=== PATIENT | male | born 1950 | race African-American/Black ===

== ENCOUNTER 2019-01-07 14:31 | Outpatient (CLI) | payer MEDICARE, OTHER ==
--- NOTE | 2019-01-07 20:18 | RAD ---
CHEST TWO VIEWS: 01/07/19 Comparison is made with the 09/06/13 study. The heart size is unchanged as well as the heart configuration. There is no vascular congestion or ed heike. There is a little linear streaking near the cardiac apex that seems similar to the prior study. I suspect it is lingular scarring. No effusions are seen. No lobar consolidations were appreciated. IMPRESSION: Chronic changes but no definite acute finding. POS: HOME
== END 2019-01-07 14:32 | disposition home or self-care (01) ==
LOC: BURRAD 14:31
PROVIDERS: ATTEND Family Medicine
DX: R05 Cough (principal)
CPT/HCPCS: 71046

== ENCOUNTER 2022-07-22 18:58 | Emergency (ER) | payer MEDICARE ==
[2022-07-22] MEDS ORDERED: Ketorolac Tromethamine 30 MG/ML VIAL ONE (19:56)
[2022-07-22] MEDS ORDERED: Diazepam 10 MG/2 ML SYRINGE ONE (19:56)
[2022-07-22] MEDS ORDERED: methylPREDNISolone Sod Succ/PF 125 MG/2 ML VIAL ONE (19:56)
[2022-07-22 20:38] LABS: #Basophils 0.1 thou/uL (0.0-0.2); #Eosinphils 0.1 thou/uL (0.0-0.7); #Lymphocytes 1.9 thou/uL (1.20-3.40); #Monocytes 0.8 thou/uL (0.11-0.59); #Neutrophils 4.9 thou/uL (1.40-6.50); %Basophils 0.7 % (0.0-1.0); %Eosinophils 1.9 % (0.0-10.0); %Lymphocytes 24.4 % (21.0-51.0); %Monocytes 10.4 % (0.0-10.0); %Neutrophils 62.7 % (42.0-75.0); Hemoglobin 14.9 g/dL (14.0-18.0); Mean Corpuscular HGB CONC 33.6 g/dL (32.0-36.0); Mean Corpuscular Hemoglobin 30.4 pg (27.0-31.0); Mean Corpuscular Volume 90.5 fL (78.0-98.0); Mean Platelet Volume 7.5 fL (7.4-10.4); Platelet Count 193 thou/uL (130-400); RBC Distribution Width 14.4 % (11.5-14.5); White Blood Cell (WBC) Count 7.9 thou/uL (4.8-10.8)
[2022-07-22 20:41] LABS: Bilirubin Negative (Negative); Blood, Urine Negative (Negative); Clarity Clear (Clear); Glucose, Urine (Dipstick) 100 mg/dL (Negative); Ketone, Urine Negative (Negative); Leukocyte Negative (Negative); Nitrite Negative (Negative); Protein, Urine (Dipstick) Negative (Neg-Trace); Urobilinogen 0.2 mg/dL (Less than 2)
[2022-07-22 20:56] LABS: ALT (SGPT) 26 U/L (8-55); AST (SGOT) 19 U/L (5-34); Albumin 4.1 g/dL (3.4-4.8); Alkaline Phosphatase 74 U/L (40-110); Anion Gap 15 mmol/L (10-20); BUN (Urea Nitrogen) 13 mg/dL (8.4-25.7); Bilirubin, Total 0.5 mg/dL (0.2-1.2); Calc. Creatinine Clearance 0 mL/min (70-130); Calcium 9.5 mg/dL (7.8-10.44); Carbon Dioxide 22 mmol/L (23-31); Chloride 106 mmol/L (98-107); Estimated GFR 58; Globulin 3.8 g/dL (2.4-3.5); Glucose 144 mg/dL (83-110); Potassium 4.1 mmol/L (3.5-5.1); Protein, Total 7.9 g/dL (5.8-8.1); Sodium 139 mmol/L (136-145)
[2022-07-22] MEDS ORDERED: HYDROcodone/Acetaminophen 5/325 mg Tablet ONE (22:14)
[2022-07-22] MEDS ORDERED: Amoxicillin/Potassium Clav 875 MG TAB ONE (22:14)
== END 2022-07-22 22:25 | disposition home or self-care (01) ==
LOC: BURERS 18:58
DX: S39.011A Strain of muscle, fascia and tendon of abdomen, initial encounter (principal); J01.90 Acute sinusitis, unspecified; Z79.899 Other long term (current) drug therapy; X58.XXXA Exposure to other specified factors, initial encounter
CPT/HCPCS: 36415; 74177; 80053; 81003; 85025; 96374; 96375; J1885; J2930; J3360

== ENCOUNTER 2022-12-08 15:28 | Emergency (ER) | payer MEDICARE ==
[2022-12-08] MEDS ORDERED: Dexamethasone 10 MG/ML VIAL ONE (16:36)
== END 2022-12-08 17:20 | disposition home or self-care (01) ==
LOC: BURERS 15:28
DX: J06.9 Acute upper respiratory infection, unspecified (principal); I10 Essential (primary) hypertension; E11.9 Type 2 diabetes mellitus without complications; E78.00 Pure hypercholesterolemia, unspecified; Z79.84 Long term (current) use of oral hypoglycemic drugs
CPT/HCPCS: 99283; J1100

== ENCOUNTER 2023-10-30 09:01 | Outpatient (CLI) | payer MEDICARE | END 2023-10-30 09:02 | disposition home or self-care (01) | LOC: BURRAD 09:01 | PROVIDERS: ATTEND Physician Assistant | DX: S32.019A Unspecified fracture of first lumbar vertebra, initial encounter for closed fracture (principal); M43.8X6 Other specified deforming dorsopathies, lumbar region | CPT/HCPCS: 72100 ==

== ENCOUNTER 2023-11-19 10:46 | Outpatient (CLI) | payer MEDICARE | END 2023-11-19 10:47 | disposition home or self-care (01) | LOC: BURRAD 10:46 | PROVIDERS: ATTEND Physician Assistant | DX: S32.019A Unspecified fracture of first lumbar vertebra, initial encounter for closed fracture (principal) | CPT/HCPCS: 72100 ==